=== PATIENT | male | born 1985 | race Caucasian/White ===

== ENCOUNTER 2023-02-01 14:52 | Outpatient (CLI) | payer OTHER, SELFPAY ==
--- NOTE | 2023-02-01 15:00 | CRLHL7_ITS ---
For Patients: As a result of the Century Cures Act, medical imaging exams and procedure reports are released immediately into your electronic medical record. You may view this report before your referring provider. If you have questions, please contact your health care provider. INDICATION: Chronic sinusitis. TECHNIQUE: Noncontrast CT images acquired through the paranasal sinuses. COMPARISON: None. FINDINGS: No air-fluid levels to suggest acute sinusitis. [id number] left and mild right maxillary sinus mucosal thickening. The ethmoid infundibula are widely patent. Mild mucosal thickening in the frontal recesses. The frontal sinuses are otherwise clear. Minimal mucosal thickening in the ethmoid air cells. The sphenoid sinuses and sphenoethmoidal recesses are clear. Mild 2 mm rightward nasal septal deviation. No nasal cavity masses. The mastoid air cells are clear. IMPRESSION: 1. Mild paranasal sinus mucosal disease. No air-fluid levels to suggest acute sinusitis. 2. Mild rightward nasal septal deviation. Please note that all CT scans at this facility use dose modulation, iterative reconstruction, and/or weight-based dosing when appropriate to reduce radiation dose to as low as reasonably achievable. Dictated by Gabe Livingston MD @ 02/01/2023 4:25:18 PM (Electronically Signed)
== END 2023-02-01 14:53 | disposition home or self-care (01) ==
LOC: CT 14:52
PROVIDERS: PCP Physician Assistant Medical; Visit Provider Family Medicine
DX: J32.9 Chronic sinusitis, unspecified (principal); J34.2 Deviated nasal septum
CPT/HCPCS: 70486

== ENCOUNTER 2023-05-02 19:48 | Outpatient (CLI) | payer OTHER, SELFPAY ==
--- NOTE | 2023-05-11 08:55 | P.SLS_ITS ---
Sleep Study Details Details Interpreting Provider: Yu Date of Sleep Study: 05/02/23 Sleep Study Details: STUDY TYPE:? Home unattended ? BMI:? 25.9 ORDERING PROVIDER:? Yu INDICATION:? Concerns about sleep apnea ? SLEEP SUMMARY:? 427 minutes monitored RESPIRATORY SUMMARY:? AHI is 2.5, supine 4.2, right lateral 0.6 Low oxygen 87 0.3% of study oxygen less than 90% Snoring 20.8% PERIODIC LIMB MOVEMENTS OF SLEEP:? Not recorded during home study CARDIAC:? Range 44-95 beats per minute, mean 57.9 beats per minute IMPRESSION:? This study does not demonstrate clinically significant obstructive sleep apnea. Primary snoring was noted during 20.8% of the study. RECOMMENDATION: If sleep disorder is strongly suspected would consider an in- lab study.
== END 2023-05-02 19:49 | disposition home or self-care (01) ==
LOC: SLEEP 19:51
PROVIDERS: PCP Physician Assistant Medical; Visit Provider Otolaryngology
DX: G47.30 Sleep apnea, unspecified (principal); G47.10 Hypersomnia, unspecified
CPT/HCPCS: 95806

== ENCOUNTER 2024-08-09 20:59 | Outpatient (CLI) | payer OTHER, SELFPAY | END 2024-08-09 21:00 | disposition home or self-care (01) | LOC: SLEEP 21:00 | PROVIDERS: PCP Internal Medicine; Visit Provider Internal Medicine | DX: G47.10 Hypersomnia, unspecified (principal) | CPT/HCPCS: 95810 ==